=== PATIENT | female | born 1985 | race Caucasian/White ===

== ENCOUNTER 2016-03-02 13:18 | Emergency (ER) | payer BC ==
[2016-03-02] MEDS ORDERED: ASPIRIN 81 MG CHEW TAB ONE (13:36)
[2016-03-02] MEDS ORDERED: KETOROLAC 30 MG/ML VIAL ONE (16:41)
== END 2016-03-02 18:09 | disposition home or self-care (01) ==
LOC: ER 13:18
DX: R07.9 Chest pain, unspecified (principal); R10.32 Left lower quadrant pain; F17.210 Nicotine dependence, cigarettes, uncomplicated; Z79.899 Other long term (current) drug therapy
CPT/HCPCS: 36415; 71010; 76856; 80053; 81003; 82550; 83735; 84439; 84443; 84484; 84703; 85025; 85610; 85730; 87491; 87591; 87800; 93005; 96374